=== PATIENT | female | born 1975 | race Caucasian/White ===

== ENCOUNTER 2017-09-19 15:38 | Emergency (ER) | payer SELFPAY ==
--- NOTE | 2017-09-19 16:40 | ER Document Report ---
ED Medical Screen (RME) - General TRAVEL OUTSIDE OF THE [place] IN LAST 30 DAYS: No <PETERSON KOTHARI - Last Filed: 09/19/17 19:20> <NICHOLAS CANTRELL - Last Filed: 09/19/17 19:34> - General Chief Complaint: Headache Stated Complaint: CHEST PAIN Time Seen by Provider: 09/19/17 16:29 Notes: Patient is a 41-year-old female who presents to the emergency presents today for complaints of "chronic subjective dizziness" with associated nausea, vomiting, and diarrhea. Patient states the diarrhea was yesterday but has subsided today. Patient also mentions right-sided head pain, chest pain, and associated palpitations. Patient states she did not take her Antivert today because she was scared she would not be able to keep it down. I have greeted and performed a rapid initial assessment of this patient. A comprehensive ED assessment and evaluation of the patient, analysis of test results, and completion of the medical decision making process will be conducted by additional ED providers. Review of systems: Positive for "Chronic subjective dizziness", vomiting, nausea, and diarrhea. Negative for history of [place], PE/DVT, fevers, or abdominal pain. PHYSICAL EXAM GENERAL: Obese. Alert, interacts well. No acute distress. HEAD: Normocephalic, atraumatic. EYES: Pupils equal, round, and reactive to light. Extraocular movements intact. ENT: Oral mucosa moist, tongue midline. NECK: Full range of motion. Supple. Trachea midline. LUNGS: Clear to auscultation bilaterally, no wheezes, rales, or rhonchi. No respiratory distress. HEART: Regular rate and rhythm. No murmurs, gallops, or rubs. ABDOMEN: Obese. Soft, non-tender. Non-distended. Bowel sounds present in all 4 quadrants. No guarding, rigidity, or rebound. EXTREMITIES: Moves all 4 extremities spontaneously. No edema, radial and dorsalis pedis pulses 2/4 bilaterally. No cyanosis. NEUROLOGICAL: Alert and oriented x3. Normal speech. PSYCH: Normal affect, normal mood. SKIN: Warm, dry, normal turgor. No rashes or lesions noted. (PETERSON KOTHARI) - Related Data Allergies/Adverse Reactions: oxycodone [Oxycodone] Allergy (Intermediate, Verified 06/18/18 16:29) Hallucination, hyperventilation Sulfa (Sulfonamide Antibiotics) Allergy (Intermediate, Verified 09/19/17 16:29) Rash Past Medical History - Social History Chew tobacco use (# tins/day): No Frequency of alcohol use: None Drug Abuse: None Pulmonary Medical History: Reports: Hx Asthma Neurological Medical History: Reports: Hx Migraine Renal/ Medical History: Denies: Hx Peritoneal Dialysis Past Surgical History: Reports: Hx Section - x 2, Hx Cholecystectomy - Immunizations Hx Diphtheria, Pertussis, Tetanus Vaccination: No <PETERSON KOTHARI - Last Filed: 09/19/17 19:20> - Vital signs Vitals: Temp Pulse Resp BP Pulse Ox 97.6 F 82 20 137/81 H 100 09/19/17 15:55 09/19/17 15:55 09/19/17 15:55 09/19/17 15:55 09/19/17 15:55 Course - Laboratory Result Diagrams: 09/19/17 17:23 09/19/17 17:23 <PETERSON KOTHARI - Last Filed: 09/19/17 19:20> - Laboratory Result Diagrams: 09/19/17 17:23 09/19/17 17:23 <NICHOLAS CANTRELL - Last Filed: 09/19/17 19:34> - Vital Signs Vital signs: Temp Pulse Resp BP Pulse Ox 97.6 F 82 20 137/81 H 100 09/19/17 15:55 09/19/17 15:55 09/19/17 15:55 09/19/17 15:55 09/19/17 15:55 - Laboratory Laboratory results interpreted by me: 09/19/17 09/19/17 09/19/17 17:23 17:23 17:23 WBC 18.8 H Seg Neutrophils % 90.1 H Lymphocytes % 7.7 L Monocytes % 1.8 L Absolute Neutrophils 17.0 H Chloride 109 H Carbon Dioxide 20 L BUN 6 L Glucose 122 H Urine Protein 30 H Urine Ketones 20 H Doctor's Discharge <PETERSON KOTHARI - Last Filed: 09/19/17 19:20> <NICHOLAS CANTRELL - Last Filed: 09/19/17 19:34> - Discharge Clinical Impression: Vertigo Migraine headache Qualifiers: Migraine type: unspecified Status migrainosus presence: with status migrainosus Intractability: not intractable Qualified Code(s): G43.901 - Migraine, unspecified, not intractable, with status migrainosus Condition: Good Disposition: HOME, SELF-CARE Additional Instructions: You were seen today for a migraine headache. Please follow-up with your primary care doctor regarding today's ED visit. Return to emergency department immediately if you develop a headache that gets to its maximum severity within 20 minutes of onset, you pass out, you develop weakness, numbness, changes in your vision, become unable to keep any fluids down for more than 12 hours, or develop a fever greater than 100.4 degrees Fahrenheit. Referrals: JOO SOTO MD [EMERITUS] - Follow up as needed Scribe Documentation - Scribe Written by Fermin:: Fermin Wilson, 09/19/2017, 1913 acting as scribe for :: Breann <PETERSON KOTHARI - Last Filed: 09/19/17 19:20>
[2017-09-19] MEDS ORDERED: DIPHENHYDRAMINE HCL 50 MG/ML VIAL IV ONE (16:41)
[2017-09-19] MEDS ORDERED: NORMAL SALINE 1000 ML 1,000 ML IV ONE (16:41)
[2017-09-19] MEDS ORDERED: PROCHLORPERAZINE EDISYLATE INJ 10 MG/2 ML VIAL IV ONE (16:41)
[2017-09-19] MEDS ORDERED: ONDANSETRON 4 MG TAB.RAPDIS PO ONE (16:41)
[2017-09-19 17:48] LABS: ABSOLUTE BASOPHILS # (AUTO) 0.1 10^3/uL (0.0-0.2); ABSOLUTE LYMPHOCYTES (AUTO) 1.4 10^3/uL (0.5-4.7); ABSOLUTE MONOCYTES (AUTO) 0.3 10^3/uL (0.1-1.4); BASOPHILS % (AUTO) 0.3 % (0-2); EOSINOPHILS % (AUTO) 0.1 % (0-6); HEMATOCRIT 44.9 % (36.0-47.0); HEMOGLOBIN 15.1 g/dL (12.0-15.5); LYMPHOCYTES % (AUTO) 7.7 % (13-45); MEAN CORPUSCULAR HEMOGLOBIN 28.8 pg (27.0-33.4); MEAN CORPUSCULAR HGB CONC 33.6 g/dL (32.0-36.0); MEAN CORPUSCULAR VOLUME 86 fl (80-97); MONOCYTES % (AUTO) 1.8 % (3-13); PLATELET COUNT 263 10^3/uL (150-450); RED BLOOD COUNT 5.24 10^6/uL (3.72-5.28); RED CELL DISTRIBUTION WIDTH 13.8 % (11.5-14.0); SEGMENTED NEUTROPHILS % (AUTO) 90.1 % (42-78); TOTAL CELLS COUNTED % (AUTO) 100 %; WHITE BLOOD COUNT 18.8 10^3/uL (4.0-10.5)
[2017-09-19 18:05] LABS: ALANINE AMINOTRANSFERASE 15 U/L (9-52); ALBUMIN 4.4 g/dL (3.5-5.0); ALKALINE PHOSPHATASE 98 U/L (38-126); ANION GAP 15 (5-19); ASPARTATE AMINO TRANSFERASE 15 U/L (14-36); BILIRUBIN,DIRECT 0.4 mg/dL (0.0-0.4); BILIRUBIN,TOTAL 0.4 mg/dL (0.2-1.3); BLOOD UREA NITROGEN 6 mg/dL (7-20); CALCIUM 9.7 mg/dL (8.4-10.2); CARBON DIOXIDE 20 mmol/L (22-30); CHLORIDE 109 mmol/L (98-107); GLUCOSE 122 mg/dL (75-110); SODIUM 143.5 mmol/L (137-145); TOTAL PROTEIN 7.9 g/dL (6.3-8.2)
[2017-09-19 18:06] LABS: POTASSIUM 4.4 mmol/L (3.6-5.0)
[2017-09-19 18:39] LABS: APPEARANCE,URINE SLIGHTLY-CLOUDY; BILIRUBIN,URINE NEGATIVE (NEGATIVE); COLOR,URINE YELLOW; GLUCOSE, URINE NEGATIVE (NEGATIVE); KETONES,URINE 20 mg/dL (NEGATIVE); LEUKOCYTE ESTERASE,URINE NEGATIVE (NEGATIVE); NITRITE,URINE NEGATIVE (NEGATIVE); PROTEIN,URINE 30 mg/dL (NEGATIVE); URINE SPECIFIC GRAVITY 1.023; UROBILINOGEN,URINE NEGATIVE mg/dL (<2.0)
--- NOTE | 2017-09-19 18:49 | EKG REPORT ---
SEVERITY:- NORMAL ECG - SINUS RHYTHM : Confirmed by: Tete Andrea 19-Sep-2017 18:49:05
--- NOTE | 2017-09-19 19:02 | RADIOLOGY REPORT (SQ) ---
EXAM DESCRIPTION: CHEST SINGLE VIEW COMPLETED DATE/TIME: 09/19/2017 6:49 pm REASON FOR STUDY: cp COMPARISON: None. EXAM PARAMETERS: NUMBER OF VIEWS: One view. TECHNIQUE: Single frontal radiographic view of the chest acquired. RADIATION DOSE: NA LIMITATIONS: None. FINDINGS: LUNGS AND PLEURA: No opacities, masses or pneumothorax. No pleural effusion. MEDIASTINUM AND HILAR STRUCTURES: No masses. Contour normal. HEART AND VASCULAR STRUCTURES: Heart normal in size. Normal vasculature. BONES: No acute findings. HARDWARE: None in the chest. OTHER: No other significant finding. IMPRESSION: NO ACUTE RADIOGRAPHIC FINDING IN THE CHEST. TECHNICAL DOCUMENTATION: JOB ID: [id number] [employer]- All Rights Reserved Reading location - IP/workstation name: [email or web address]
[2017-09-19] MEDS ORDERED: ONDANSETRON ODT 4 MG TAB (6 TAB/ER DISP) PO PRN (19:14)
--- NOTE | 2017-09-19 19:16 | ER Document Report ---
ED General - General Chief Complaint: Headache Stated Complaint: CHEST PAIN Time Seen by Provider: 09/19/17 16:29 Notes: Patient is a 41-year-old female with a past medical history of chronic subjective dizziness, morbid obesity, hypertension, who presents with vertigo with associated throbbing, constant, aching pain to the right side of her head. She notes associated nausea but no vomiting. She states that her vertigo was so intense that she could hardly walk. She has a history of similar presentations in the past when she has had exacerbations of his her underlying vertigo. She did not try anything to improve her symptoms at home. Nothing seemed to worsen the symptoms when present which she notes are now much better after receiving a migraine cocktail in triage. She does follow with neurology regarding these issues. She has not contacted them about her episode today however. Patient did apparently complain of some chest pain in triage but at the time of my assessment denies this complaint stating that it was only a mild "twinge" in her chest that has gone away. TRAVEL OUTSIDE OF THE [place] IN LAST 30 DAYS: No - Related Data Allergies/Adverse Reactions: oxycodone [Oxycodone] Allergy (Intermediate, Verified 09/19/17 16:29) Hallucination, hyperventilation Sulfa (Sulfonamide Antibiotics) Allergy (Intermediate, Verified 09/19/17 16:29) Rash Past Medical History - General Information source: Patient - Social History Smoking Status: Current Every Day Smoker Chew tobacco use (# tins/day): No Frequency of alcohol use: None Drug Abuse: None Lives with: Family Family History: Reviewed & Not Pertinent Patient has suicidal ideation: No Patient has homicidal ideation: No Pulmonary Medical History: Reports: Hx Asthma Neurological Medical History: Reports: Hx Migraine Renal/ Medical History: Denies: Hx Peritoneal Dialysis Past Surgical History: Reports: Hx Section - x 2, Hx Cholecystectomy - Immunizations Hx Diphtheria, Pertussis, Tetanus Vaccination: No Review of Systems - Review of Systems Notes: Constitutional: Negative for fever. HENT: Negative for sore throat. Eyes: Negative for visual changes. Cardiovascular: Positive for palpitations Respiratory: Negative for shortness of breath. Gastrointestinal: Negative for abdominal pain, positive for nausea Genitourinary: Negative for dysuria. Musculoskeletal: Negative for back pain. Skin: Negative for rash. Neurological: Positive for headache and vertigo 10 point ROS negative except as marked above and in HPI. Physical Exam - Vital signs Vitals: Temp Pulse Resp BP Pulse Ox 97.6 F 82 20 137/81 H 100 09/19/17 15:55 09/19/17 15:55 09/19/17 15:55 09/19/17 15:55 09/19/17 15:55 Interpretation: Normal Notes: PHYSICAL EXAMINATION: GENERAL: Well-appearing, well-nourished and in no acute distress. HEAD: Atraumatic, normocephalic. EYES: Pupils equal round and reactive to light, extraocular movements intact, sclera anicteric, conjunctiva are normal. ENT: nares patent, oropharynx clear without exudates. Moist mucous membranes. NECK: Normal range of motion, supple without lymphadenopathy LUNGS: Breath sounds clear to auscultation bilaterally and equal. No wheezes rales or rhonchi. HEART: Regular rate and rhythm without murmurs ABDOMEN: Soft, obese abdomen, nontender, normoactive bowel sounds. No guarding , no rebound. No masses appreciated. EXTREMITIES: Normal range of motion, no pitting or edema. No cyanosis. NEUROLOGICAL: Face symmetric. Tongue protrudes midline. Extraocular motions intact. Pupils are 2 mm and equally reactive. Normal speech, normal gait. 5 out of 5 strength in both the distal and proximal upper and lower extremities bilaterally. Sensation is grossly intact throughout. Finger to nose testing normal. Pronator drift normal. PSYCH: Normal mood, normal affect. SKIN: Warm, Dry, normal turgor, no rashes or lesions noted. Course - Re-evaluation Re-evalutation: 09/19/17 19:13 Patient presents with an acute episode of headache associated with vertigo and palpitations. The patient states this feels very similar to when she has had vertigo attacks in the past with associated migraine headache. At the time of my assessment the patient has had resolution of all of her symptoms without any ongoing headache, vertigo or palpitations. Patient did state that she had a mild amount of left-sided chest tightness when the vertigo was maximal which she has had in the past with these attacks. Her EKG is unremarkable without ischemic changes and was taken when she first arrived. I do not clinically suspect ACS as the etiology of her presentation and do not believe troponin assay testing is indicated at this time point. Remainder laboratories are notable only for nonspecific leukocytosis. The patient has no symptoms to suggest meningitis, encephalitis, or other infectious process. A complete neurologic examination at the bedside is unremarkable, and a stroke scale of 0. At this time will discharge with return precautions and follow-up recommendations. Verbal discharge instructions given a the bedside and opportunity for questions given. Medication warnings reviewed. Patient is in agreement with this plan and has verbalized understanding of return precautions and the need for primary care follow-up in the next 24-72 hours. - Vital Signs Vital signs: Temp Pulse Resp BP Pulse Ox 98.1 F 85 16 140/76 H 97 09/19/17 19:46 09/19/17 19:46 09/19/17 19:46 09/19/17 19:46 09/19/17 19:46 - Laboratory Result Diagrams: 09/19/17 17:23 09/19/17 17:23 Laboratory results interpreted by me: 09/19/17 09/19/17 09/19/17 17:23 17:23 17:23 WBC 18.8 H Seg Neutrophils % 90.1 H Lymphocytes % 7.7 L Monocytes % 1.8 L Absolute Neutrophils 17.0 H Chloride 109 H Carbon Dioxide 20 L BUN 6 L Glucose 122 H Urine Protein 30 H Urine Ketones 20 H - Diagnostic Test Radiology reviewed: Image reviewed, Reports reviewed Radiology results interpreted by me: 09/19/17 19:15 Chest x-ray: No acute infiltrate or pneumothorax - EKG Interpretation by Me Additional EKG results interpreted by me: 09/19/17 19:15 Sinus rhythm. Rate 79. No ST elevations or depressions. QTC is 473. Discharge - Discharge Clinical Impression: Vertigo Migraine headache Qualifiers: Migraine type: unspecified Status migrainosus presence: with status migrainosus Intractability: not intractable Qualified Code(s): G43.901 - Migraine, unspecified, not intractable, with status migrainosus Condition: Good Disposition: HOME, SELF-CARE Additional Instructions: You were seen today for a migraine headache. Please follow-up with your primary care doctor regarding today's ED visit. Return to emergency department immediately if you develop a headache that gets to its maximum severity within 20 minutes of onset, you pass out, you develop weakness, numbness, changes in your vision, become unable to keep any fluids down for more than 12 hours, or develop a fever greater than 100.4 degrees Fahrenheit. Referrals: JOO SOTO MD [EMERITUS] - Follow up as needed
[2017-09-19 19:48] VITALS: BP 140/76
== END 2017-09-19 19:46 | disposition home or self-care (01) ==
LOC: ER 15:38
DX: G43.901 Migraine, unspecified, not intractable, with status migrainosus (principal); R42 Dizziness and giddiness; R11.0 Nausea; J45.909 Unspecified asthma, uncomplicated; R07.89 Other chest pain; R00.2 Palpitations; I10 Essential (primary) hypertension; F17.200 Nicotine dependence, unspecified, uncomplicated; Z88.5 Allergy status to narcotic agent; Z88.2 Allergy status to sulfonamides
CPT/HCPCS: 93005; 99285; 96361; 96374; 96375; 36415; 85025; 80053; 81001; 71045; 93010; J1200; S0119; J0780; J7030